=== PATIENT | male | born 1970 | race Caucasian/White ===

== ENCOUNTER 2019-11-22 19:30 | Outpatient (CLI) | payer OTHER | END 2019-11-22 23:59 | disposition home or self-care (01) | LOC: SC 19:30 | PROVIDERS: ATTEND Nurse Practitioner Family | DX: G47.33 Obstructive sleep apnea (adult) (pediatric) (principal) | CPT/HCPCS: 95806 ==

== ENCOUNTER 2019-12-07 07:52 | Outpatient (CLI) | payer OTHER ==
--- NOTE | 2019-12-07 08:26 | SLEEP CARE CONSULTATION ---
Information from patient questionnaire entered by Baldomero James. I have reviewed and concur with the information entered by Baldomero James. This document represents the service I personally performed and the decisions made by , Bianca Kong ARNP. History of Present Illness Service Date and Time: 12/07/2019 075 Initial [place] Sleepiness Scale score: 16 (in 2020) Current [place] Sleepiness Scale score: 17 Additional HPI information: MICHAEL REYNA returns for follow up and results of the recently performed home sleep study. Patient was found to have moderate obstructive sleep apnea with calculated AHI of 27.0, supine AHI 31.4 and a non-supine AHI of 15.7. He also had moderate hypoxia with a rae oxygen saturation of 77.1%. I explained the pathophysiology behind obstructive sleep apnea. We then spent quite a bit of time discussing different treatment options. For mild obstructive sleep apnea, surgery and oral appliance are alternatives to nasal CPAP therapy but in moderate or severe cases, nasal CPAP is the most effective and reliable treatment. Because apnea is primarily in supine position, then positional management therapy could be partially effective. Methods discussed such as positioning with pillows, using a T-shirt with tennis balls in the back, and shown commercial products that have a pillow format on back to prevent supine sleep. I reviewed the impact of weight changes on sleep apnea and strongly recommended losing weight. After some discussion, the patient opted to go with the nasal CPAP therapy. A manual titration study will be ordered to find optimal pressure with office adjustments. I explained how CPAP machine works with sample devices Respironics Dreamstation and ResTribridge [id number] and what to expect when using the machine. Using CPAP every night in order to get used to it was emphasized. Patient advised to put CPAP mask on before getting into bed so as not to fall asleep without CPAP. To assist acclimation to CPAP use, it could also be used for a short time during day while reading or watching TV. The patient was instructed to call the CPAP supplier to discuss any mechanical problem that may occur. If the mask given is uncomfortable or is difficult to keep on through the night even with adjustment, contact the CPAP supplier as many will replace with another mask style if notified before 30 days. If snoring or perceives is not getting enough air or too much air from the machine, notify this office. AASM patient education PAP tips reviewed and given to patient. Sleep Study - Results Type of Sleep Study: Home sleep study Prior sleep studies: No Polysomnography/Home Sleep Study results: SLEEP TIME AND EFFICIENCY: The sleep study recording began at 09:16:42 PM and ended at 05:28:13 AM. Total recording time was 491.5 minutes. The total sleep time was 458.5 minutes. The sleep efficiency was 93.3 percent. The patient spent 328.6 minutes supine, and spent 129.9 minutes non-supine. The patients own estimate of sleep time was 8.20 hours. RESPIRATORY DATA: The AHI in this report is indexed to sleep time based on acti graphy. The AASM defines this as SANKET. The AHI on this type 3 Home Sleep Study may understate the AHI determined on a type 1 or 2 study, since EEG is not monitored resulting in the inability to score non-desaturating hypopneas. Based on 4% Calculation: The AHI4% calculation of 27.0 per hour of recording time was based on a total of 97 scored apneas and 109 scored hypopneas with 4% desaturations. Supine AHI4%: 31.4 per hour. Non-supine AHI4%: 15.7 per hour. Oxygen Summary: Patient's baseline O2 saturation was 91.2 %. The patient spent 146.3 minutes at an oxygen saturation less than 90%, and 1.1 minutes less than 85%. The desaturation index was 23.0 events per hour sleep time. The lowest saturation was 77.1 %. SNORING: The percent of the study time spent snoring was 0.0 %. The Snoring Count was 0 . The Snoring Index was 0.0 . PULSE RATE REVIEW: The mean heart rate was 66 beats per minute. The rate ranged from a low of 52 to a high of 91 beats per minute. DIAGNOSIS CODE: Moderate obstructive sleep apnea (ICD-10 G47.33), associated with moderate hypoxia, occuring more frequently during supine sleep. Moderate desaturations were noted. Allergies and Home Medications Drug allergies reviewed: Yes (NKDA) Home medication list reviewed: Yes (no changes) Review of Systems Review of systems same as previous: Yes (no changes) Physical Exam Heart Rate: 92 O2 Saturation: 95 Height: 5 ft 9 in Weight: 208 lb Body Mass Index: 30.7 BMI Classification: Obese Impression and Plan 1. Obstructive Sleep Apnea-Hypopnea Syndrome, moderate, with lowest oxygen saturation of 77.1%. This is the possible cause of the patients symptoms of unrefreshed sleep, and excessive daytime sleepiness. Positive pressure therapy could benefit his anxiety and depression. As mentioned above, the patient a manual titration study will be completed to find optimal treatment pressure with office adjustments. Compliance guidelines also reviewed. Because the apnea is more severe supine, I instructed to avoid sleeping supine using pillow positioning until able to start CPAP use. * Titration study * Attempt to lose weight. * Avoid alcohol consumption near bedtime. * Avoid supine sleep until using CPAP. * The patient is again cautioned about driving until sleepiness completely resolves. * Return after titration study for set up on CPAP machine and compliance guidelines. Visit Type: In Office Time Spent with Patient (minutes): 25 Provider Statement: I spent 100% of the Face to Face Visit with the patient with greater than 50% spent counseling the patient and coordination of care.
== END 2019-12-07 07:53 | disposition home or self-care (01) ==
LOC: SC 07:52
PROVIDERS: ATTEND Nurse Practitioner Family
DX: G47.33 Obstructive sleep apnea (adult) (pediatric) (principal); E66.9 Obesity, unspecified; Z68.30 Body mass index [BMI] 30.0-30.9, adult
CPT/HCPCS: 99212; 99213

== ENCOUNTER 2020-02-25 08:08 | Emergency (ER) | payer OTHER ==
[2020-02-25] MEDS ORDERED: SODIUM CHLORIDE 0.9% 1,000 ML IV STA ×2 (08:36→09:16)
[2020-02-25] MEDS ORDERED: LORazepam 2 MG/ML VIAL IVP STA (09:16)
[2020-02-25 09:24] LABS: BASOPHILS % (AUTO) 0.4 %; EOSINOPHILS % (AUTO) 0.2 %; HGB - HEMOGLOBIN 14.5 g/dL (14.0-18.0); LYMPHOCYTES # (AUTO) 0.8 10^3/uL (1.5-3.5); LYMPHOCYTES % (AUTO) 9.9 %; MEAN CORPUSCULAR HEMOGLOBIN 33.7 pg (27.0-31.0); MEAN CORPUSCULAR HGB CONC 35.5 g/dL (32.0-36.0); MEAN CORPUSCULAR VOLUME 94.9 fL (80.0-94.0); MEAN PLATELET VOLUME 9.3 fL (7.4-11.4); MONOCYTES # (AUTO) 0.6 10^3/uL (0.0-1.0); NEUTROPHILS # (AUTO) 6.5 10^3/uL (1.5-6.6); NEUTROPHILS % (AUTO) 80.5 %; PLT - PLATELET COUNT 202 10^3/uL (130-450); RED CELL DISTRIBUTION WIDTH 12.3 % (12.0-15.0)
--- NOTE | 2020-02-25 09:31 | CT Report ---
PROCEDURE: HEAD WO INDICATIONS: confusion acute TECHNIQUE: Noncontrast 4.5 mm thick angled axial sections acquired from the foramen magnum to the vertex. For r adiation dose reduction, the following was used: automated exposure control, adjustment of mA and/or kV according to patient size. COMPARISON: None. FINDINGS: Image quality: Excellent. CSF spaces: Basal cisterns are patent. No extra-axial fluid collections. Ventricles are normal in size and shape. Presumed posterior fossa arachnoid cyst. Brain: No midline shift. No intracranial masses or hemorrhage. Huerta-white matter interface is norm al. Skull and face: Calvarium and visualized facial bones are intact, without suspicious lesions. Sinuses: Visualized sinuses and mastoids are clear. IMPRESSION: No acute intracranial process. Reviewed by: Osmany Dueñas MD on 02/25/2020 9:30 AM PST Approved by: Osmany Dueñas MD on 02/25/2020 9:30 AM [facility] Station ID: [id number]
[2020-02-25 09:37] LABS: ACETAMINOPHEN < 10 ug/mL (10-30); ALBUMIN 4.9 g/dL (3.2-5.5); ALKALINE PHOSPHATASE 71 IU/L (42-121); ALT ALANINE AMINOTRANSFERASE 77 IU/L (10-60); AST ASPARTATE AMINOTRANSFERASE 53 IU/L (10-42); BILIRUBIN,TOTAL 0.7 mg/dL (0.2-1.0); BUN - BLOOD UREA NITROGEN 17 mg/dL (6-20); CARBON DIOXIDE - CO2 24 mmol/L (21-32); CHLORIDE 100 mmol/L (101-111); GLUCOSE 142 mg/dL (70-100); MAGNESIUM 1.8 mg/dL (1.7-2.8); SALICYLATE < 6.0 mg/dL; SODIUM 135 mmol/L (135-145); TOTAL PROTEIN 7.3 g/dL (6.7-8.2)
[2020-02-25 10:41] LABS: MUDS CUTOFF CONCENTRATIONS CUTOFF CONC BELOW:
[2020-02-25 10:42] LABS: BILIRUBIN,URINE NEGATIVE (NEGATIVE); GLUCOSE, URINE (UA) NEGATIVE (NEGATIVE); KETONES,URINE (UA) NEGATIVE (NEGATIVE); LEUKOCYTE ESTERASE, URINE NEGATIVE (NEGATIVE); NITRITE,URINE NEGATIVE (NEGATIVE); OCCULT BLOOD,URINE TRACE-INTA (NEGATIVE); PH,URINE 5.5 PH (5.0-7.5); PROTEIN,URINE NEGATIVE (NEGATIVE); UROBILINOGEN,URINE 0.2 (NORMAL) E.U./dL (NORMAL)
[2020-02-25 10:44] LABS: CLARITY,URINE CLEAR (CLEAR)
[2020-02-25 10:54] LABS: AMPHETAMINE SCREEN,URINE NEGATIVE (NEGATIVE); BENZODIAZEPINES SCREEN, URINE NEGATIVE (NEGATIVE); COCAINE SCREEN URINE NEGATIVE (NEGATIVE); METHADONE SCREEN, URINE NEGATIVE (NEGATIVE); METHAMPHETAMINES SCREEN, URINE NEGATIVE (NEGATIVE); OPIATE SCREEN, URINE NEGATIVE (NEGATIVE); OXYCODONE SCREEN, URINE NEGATIVE (NEGATIVE); PROPOXYPHENE SCREEN, URINE NEGATIVE (NEGATIVE); TRICYCLIC ANTIDEPRESSANT,URINE NEGATIVE (NEGATIVE)
--- NOTE | 2020-02-25 11:24 | ED Physician Documentation ---
PD HPI ALTERED MENTAL STATUS - Stated complaint Stated Complaint: SHAKING/UNABLE TO SPEAK - Chief complaint Chief Complaint: Neuro - History obtained from History obtained from: Patient, Family - History of Present Illness Timing - onset: Today Timing - duration: Minutes Timing - details: Abrupt onset, Still present Quality / character: Confused, Other (tremoring, and feels "detached from body". Onset after taking morning meds and adding Indomethacin (which he has taken before but not for couple of months) for left elbow gout symptoms that started yesterday. New meds of Buspar 3 weeks ago and Straterra 2 wks ago. Denies drugs. glass wine last sherry.) Associated symptoms: General weakness (and feeling of muscle stiffness and tremors.). No: Fever, Headache, Stiff neck, Dyspnea, Cough, NVD, Focal weakness Contributing factors: Recent med change (see above). No: Recent illness, Recent injury, Substance abuse Basline status: Alert and oriented X 3, Ambulatory Similar symptoms before: Has not had sx before Recently seen: Clinic (seen by pschiatric provider few weeks ago and had Buspar then Straterra added for anxiety. No symptoms when starting those.) Review of Systems Constitutional: reports: Myalgias. denies: Fever, Chills Nose: denies: Rhinorrhea / runny nose, Congestion Throat: denies: Sore throat Cardiac: denies: Chest pain / pressure Respiratory: denies: Cough GI: denies: Abdominal Pain, Nausea, Vomiting Skin: denies: Rash Neurologic: reports: Generalized weakness, Confused. denies: Focal weakness, Numbness, Head injury PD PAST MEDICAL HISTORY - Past Medical History Endocrine/Autoimmune: HyPOthyroidism Psych: Anxiety, ADD/ADHD - Past Surgical History Past Surgical History: Yes - Present Medications Home Medications: Ambulatory Orders Medication Instructions Recorded Confirmed Levothyroxine [Synthroid] 150 mcg PO DAILY 11/07/13 11/07/13 Allopurinol [Zyloprim] 300 mg PO 02/25/20 Atomoxetine HCl [Strattera] 25 mg PO 02/25/20 Escitalopram [Lexapro] 10 mg PO DAILY 02/25/20 02/25/20 Indomethacin [Indocin] 50 mg 02/25/20 busPIRone [Buspar] 5 mg PO 02/25/20 - Allergies Allergies/Adverse Reactions: Allergies Allergy/AdvReac Type Severity Reaction Status Date / Time No Known Drug Allergies Allergy Verified 02/25/20 08:24 - Living Situation Living Situation: reports: With spouse/s.o. Living Arrangement: reports: At home - Social History Does the pt smoke?: No Smoking Status: Never smoker Does the pt drink ETOH?: Yes ETOH Use: Wine (occasional) Does the pt have substance abuse?: No - POLST Patient has POLST: No PD ED PE NORMAL - Vitals Vital signs reviewed: Yes - General General: Alert and oriented X 3, Well developed/nourished, Other (seems anxious and with general tremoring. ) - HEENT HEENT: Moist mucous membranes, Pharynx benign - Neck Neck: Supple, no meningeal sign - Cardiac Cardiac: RRR, No murmur - Respiratory Respiratory: Clear bilaterally - Abdomen Abdomen: Soft, Non tender - Back Back: No CVA TTP - Derm Derm: Normal color, Warm and dry, No rash - Extremities Extremities: No: Normal ROM s pain (seems stiff generally, but without notable hyperreflexia. ) - Neuro Neuro: Alert and oriented X 3, program manager slp 2-12 intact, No sensory deficit, Normal speech Eye Opening: Spontaneous Motor: Obeys Commands Verbal: Oriented GCS Score: 15 Results - Vitals Vitals: Vital Signs - 24 hr 02/25/20 02/25/20 02/25/20 08:19 09:11 09:35 Temperature 37.2 C Heart Rate 86 78 78 Respiratory 18 18 18 Rate Blood Pressure 142/77 H 131/88 H 122/81 H O2 Saturation 99 98 99 02/25/20 02/25/20 10:00 11:34 Temperature Heart Rate 73 88 Respiratory 16 16 Rate Blood Pressure 127/84 H 126/88 H O2 Saturation 100 98 Oxygen O2 Source Room air - Labs Labs: Laboratory Tests 02/25/20 02/25/20 02/25/20 09:16 09:16 09:16 WBC 8.0 RBC 4.30 L Hgb 14.5 Hct 40.8 L MCV 94.9 H MCH 33.7 H MCHC 35.5 RDW 12.3 Plt Count 202 MPV 9.3 Neut # (Auto) 6.5 Lymph # (Auto) 0.8 L [place] # (Auto) 0.6 Eos # (Auto) 0.0 Baso # (Auto) 0.0 Absolute Nucleated RBC 0.00 Nucleated RBC % 0.0 Sodium 135 Potassium 4.4 Chloride 100 L Carbon Dioxide 24 Anion Gap 11.0 BUN 17 Creatinine 1.0 Estimated GFR (MDRD) 79 L Glucose 142 H Calcium 9.0 Magnesium 1.8 Total Bilirubin 0.7 AST 53 H ALT 77 H Alkaline Phosphatase 71 Total Protein 7.3 Albumin 4.9 Globulin 2.4 Albumin/Globulin Ratio 2.0 TSH 7.32 H Urine Color Urine Clarity Urine pH Ur Specific [place] Urine Protein Urine Glucose (UA) Urine Ketones Urine Occult Blood Urine Nitrite Urine Bilirubin Urine Urobilinogen Ur Leukocyte Esterase Ur Microscopic Review Urine Culture Comments Salicylates < 6.0 Urine Opiates Screen Ur Oxycodone Screen Urine Methadone Screen Ur Propoxyphene Screen Acetaminophen < 10 L Ur Barbiturates Screen Ur Tricyclics Screen Ur Phencyclidine Scrn Ur Amphetamine Screen U Methamphetamines Scrn U Benzodiazepines Scrn Urine Cocaine Screen U Cannabinoids Screen Ethyl Alcohol < 5.0 02/25/20 10:30 WBC RBC Hgb Hct MCV MCH MCHC RDW Plt Count MPV Neut # (Auto) Lymph # (Auto) [place] # (Auto) Eos # (Auto) Baso # (Auto) Absolute Nucleated RBC Nucleated RBC % Sodium Potassium Chloride Carbon Dioxide Anion Gap BUN Creatinine Estimated GFR (MDRD) Glucose Calcium Magnesium Total Bilirubin AST ALT Alkaline Phosphatase Total Protein Albumin Globulin Albumin/Globulin Ratio TSH Urine Color YELLOW Urine Clarity CLEAR Urine pH 5.5 Ur Specific [place] 1.015 Urine Protein NEGATIVE Urine Glucose (UA) NEGATIVE Urine Ketones NEGATIVE Urine Occult Blood TRACE-INTA Urine Nitrite NEGATIVE Urine Bilirubin NEGATIVE Urine Urobilinogen 0.2 (NORMAL) Ur Leukocyte Esterase NEGATIVE Ur Microscopic Review NOT INDICATED Urine Culture Comments NOT INDICATED Salicylates Urine Opiates Screen NEGATIVE Ur Oxycodone Screen NEGATIVE Urine Methadone Screen NEGATIVE Ur Propoxyphene Screen NEGATIVE Acetaminophen Ur Barbiturates Screen NEGATIVE Ur Tricyclics Screen NEGATIVE Ur Phencyclidine Scrn NEGATIVE Ur Amphetamine Screen NEGATIVE U Methamphetamines Scrn NEGATIVE U Benzodiazepines Scrn NEGATIVE Urine Cocaine Screen NEGATIVE U Cannabinoids Screen NEGATIVE Ethyl Alcohol PD MEDICAL DECISION MAKING - ED course Complexity details: re-evaluated patient (he is feeling much better with IV fluids and small dose Ativan. ), considered differential (Indocin can have central effects and cause confusion. He has had it previously for gout several times. However had not taken it since being on new meds. But also having tremors and stiffness, so seems like maybe serotonin symptoms and wonder if new meds hitting threshold level now/interactions. ), d/w patient Departure - Departure Disposition: 01 Home, Self Care Clinical Impression: Coarse tremors AMS (altered mental status) Qualifiers: Altered mental status type: delirium Qualified Code(s): R41.0 - Disorientation, unspecified Medication adverse effect Qualifiers: Encounter type: initial encounter Qualified Code(s): T50.905A - Adverse effect of unspecified drugs, medicaments and biological substances, initial encounter Condition: Stable Record reviewed to determine appropriate education?: Yes Follow-Up: Lb Rico MD [Primary Care Provider] - Comments: The indomethacin can cause some confusion as a side effect. It may be that it was interacting with your other new medicines and allowed for a side effect you had not had before. However some of the symptoms with the tremoring and such sound more like serotonin excess type symptoms. So the combination of medications may be enhancing the effect of the recent addition of buspirone. It could also be enhanced by under hydration. At this point I would suggest holding your indomethacin and using naproxen or ibuprofen instead if needed for the elbow pain. This should work similarly for gout or bursitis and have not the same central/[employer] effect as the indomethacin. I would also hold your Buspirone until you talk with your psychiatric provider this week. Stay well-hydrated. Other medications as the same. Discharge Date/Time: 02/25/20 11:42
[2020-02-25 11:35] VITALS: BP 126/88
== END 2020-02-25 11:42 | disposition home or self-care (01) ==
LOC: ED 08:08
DX: R25.1 Tremor, unspecified (principal); R41.0 Disorientation, unspecified; T39.395A Adverse effect of other nonsteroidal anti-inflammatory drugs [NSAID], initial encounter; T43.595A Adverse effect of other antipsychotics and neuroleptics, initial encounter
CPT/HCPCS: 36415; 70450; 80320; 80329; 81003; 83735; 96374; 99284; J2060; 80053; 80306; 80307; 81001; 84443; 85025; 87086

== ENCOUNTER 2020-02-29 09:35 | Outpatient (CLI) | payer OTHER ==
--- NOTE | 2020-02-29 08:47 | SLEEP CARE CONSULTATION ---
Information from patient questionnaire entered by Evy Cabello. I have reviewed and concur with the information entered by Evy Cabello. This document represents the service I personally performed and the decisions made by me, Bianca Kong ARNP. History of Present Illness Service Date and Time: 02/29/2020 0820 Previous diagnosis: Moderate, Obstructive Sleep Apnea-Hypopnea Syndrome AHI: 27.0 (in 2019) Reason for follow up: first compliance Equipment type: CPAP Equipment obtained from: Other ([facility]; no issue so far and getting supplies) Mask style: Nasal (over the nose) Mask brand: Respironics Backup mask available: Yes (other mask) Last cushion change: few days ago Prior sleep studies: Yes Year and Where: 2019 - [facility] Type of Sleep Study: Home sleep study HPI additional information: MICHAEL REYNA was diagnosed to have moderate, AHI 27.0, obstructive sleep apnea-hypopnea syndrome and returns via Telehealth visit today for CPAP therapy first compliance follow-up. He is working with different medication for his anxiety and panic attacks and this is messing with his sleep patterns. CPAP Compliance Data - Data Reviewed with Patient Average duration of nightly device use: 4 hours 29 minutes Compliance rate %: 63.3 Current pressure setting (cmH2O): 4-15 Humidity settin Heated hose settin Average residual AHI: 3.0 Average large leak: 2 mins 54 secs Subjective Patient concerns: reports: nasal congestion (early on did but this has resolved). denies: aerophagia, mask discomfort, air blowing in eyes, mask leak noise, condensation in mask/hose, dry mouth, nose, throat, epistaxis, other Observed to snore while using device: No Current pressure setting perceived as: comfortable On therapy, patient: reports: sleeping better, awakening more refreshed, being more awake and alert during the day, more rested overall. denies: drowsiness while driving Initial [place] Sleepiness Scale score: 16 (in 2019) Current [place] Sleepiness Scale score: 7 Allergies and Home Medications Drug allergies reviewed: Yes (NKDA) Home medication list reviewed: Yes (adjustments of antianxiety/antidepressants) Review of Systems Review of systems same as previous: Yes (no changes) Physical Exam Vital signs obtained and entered by: Telehealth visit to limit exposure during Covid pandemic Height: 5 ft 9 in Impression and Plan 1. Obstructive Sleep Apnea-Hypopnea Syndrome, moderate, with fair treatment compliance and good apnea control. On CPAP therapy, the patient has better sleep quality and is more rested overall. He is working with his psychiatrist on his anxiety and depression medications which has been interrupting his sleeping patterns. He thinks this will level out soon. I encouraged him to continue using CPAP nightly and his compliance should increase. I will adjust his pressure to 5-8 cmH2O since his median pressure is 4.8 cmH2O, 90% average pressure 6.3 cmH2O and average peak pressure is 7.1 cmH2O. Patient's apnea severity and rationale for treatment to reduce apnea, improve sleep quality and reduce cardiovascular and cerebrovascular events was reviewed. I also reviewed the benefit of consistent device use of CPAP for depression and anxiety. * Changeauto CPAP pressure to 5-8 cmH2O * Notify me if snoring with mask or feeling that the pressure is too much or too little * Attempt to lose weight * Call this office if any problems using CPAP * Return for follow up in 1-2 months , or sooner if concerns arise Counseling Topics: Spare mask Visit Type: Telehealth Video Video Type: Doximity Patient Location: Home Location of Provider: Office Patient agrees and consents to this telehealth visit type: Yes Patient agrees to have their insurance billed: Yes Time Spent with Patient (minutes): 22 Provider Statement: I spent 100% of the Telehealth Video Call with the patient with greater than 50% spent counseling the patient and coordination of care.
== END 2020-02-29 09:36 | disposition home or self-care (01) ==
LOC: SC 09:35
PROVIDERS: ATTEND Nurse Practitioner Family
DX: G47.33 Obstructive sleep apnea (adult) (pediatric) (principal)

== ENCOUNTER 2020-08-21 10:29 | Outpatient (CLI) | payer OTHER ==
--- NOTE | 2020-08-21 11:41 | XRAY Report ---
PROCEDURE: Elbow 3 View RT INDICATIONS: EFFUSION, RIGHT ELBOW TECHNIQUE: 4 views of the elbow were acquired. COMPARISON: 03/29/2010 FINDINGS: Bones: No fractures or dislocations. Mild juxta-articular spurring at the elbow joint. No suspicious bony lesions. Soft tissues: Small elbow joint effusion. No suspicious soft tissue calcifications. IMPRESSION: 1. Mild spur formation indicating degenerative change. 2. Small elbow joint effusion. 3. Consider MRI for further detail of intrinsic soft tissues. Reviewed by: Yamini العراقي MD on 08/21/2020 11:40 AM PDT Approved by: Yamini العراقي MD on 08/21/2020 11:40 AM PDT Station ID: [id number]
== END 2020-08-21 10:30 | disposition home or self-care (01) ==
LOC: DI.N 10:29
PROVIDERS: ATTEND Physician Assistant
DX: M25.421 Effusion, right elbow (principal); M77.8 Other enthesopathies, not elsewhere classified